=== PATIENT | female | born 1970 | race Caucasian/White ===

== ENCOUNTER → 2020-02-03 08:48 | Outpatient (CLI) | payer OTHER, SELFPAY ==
[2020-02-03 08:09] VITALS: BMI 51.2
== END ==
PROVIDERS: Visit Provider Internal Medicine Endocrinology, Diabetes & Metabolism
DX: E27.8 Other specified disorders of adrenal gland (principal)
CPT/HCPCS: 36415; 82024; 82088; 82533; 82627; 84244; 82626